=== PATIENT | female | born 1960 | race Caucasian/White ===

== ENCOUNTER → 2017-01-26 | Outpatient (CLI) | payer OTHER | LOC: WI 08:11 | PROVIDERS: ATTEND Nurse Practitioner Family | DX: Z12.31 Encounter for screening mammogram for malignant neoplasm of breast (principal); Z53.8 Procedure and treatment not carried out for other reasons ==

== ENCOUNTER 2017-04-27 05:31 | Day surgery (SDC) | payer OTHER ==
[2017-04-20 09:37] LABS: HEMATOCRIT 41.1 % (36.0-47.0); HEMOGLOBIN 14.6 g/dL (12.0-15.5); HGB HCT DIFFERENCE 2.7; MEAN CORPUSCULAR HEMOGLOBIN 31.7 pg (27.0-33.4); MEAN CORPUSCULAR HGB CONC 35.4 g/dL (32.0-36.0); MEAN CORPUSCULAR VOLUME 89 fl (80-97); RED BLOOD COUNT 4.59 10^6/uL (3.72-5.28); RED CELL DISTRIBUTION WIDTH 13.1 % (11.5-14.0); WHITE BLOOD COUNT 9.1 10^3/uL (4.0-10.5)
[~2017-04-27 05:31] MED LIST: CEFAZOLIN 1 GM/D5W RTU 1 GM/50 ML RTUPB IV PRN; DEXTROSE 5%-LACTATED RINGERS 1,000 ML IV PRN; LACTATED RINGERS 1000 ML IV PRN
[2017-04-27] MEDS ORDERED: KETAMINE HCL INJ 500 MG/10 ML VIAL ONE (06:13)
[2017-04-27] MEDS ORDERED: MIDAZOLAM 2 MG/2 ML INJ ONE (06:14)
[2017-04-27] MEDS ORDERED: FENTANYL CITRATE INJ/PF 100 MCG/2 ML AMPUL ONE (06:14)
[2017-04-27] MEDS ORDERED: PROPOFOL INJ 200 MG/20 ML VIAL IV ONE (06:15)
[2017-04-27] MEDS ORDERED: LIDOCAINE 1%/EPINEPHRINE INJ 20 ML VIAL ONE (06:53)
[2017-04-27] MEDS ORDERED: MICROFIBRILLAR COLLAGEN 1 GM PACK ONE (06:53)
[2017-04-27] MEDS ORDERED: FENTANYL CITRATE INJ/PF 100 MCG/2 ML AMPUL IV PRN ×3 (07:51)
[2017-04-27] MEDS ORDERED: OXYCODONE-ACETAMINOPHEN 5-325 MG TABLET PO PRN ×2 (07:51)
[2017-04-27] MEDS ORDERED: DIPHENHYDRAMINE HCL 50 MG/ML VIAL IV PRN (07:51)
[2017-04-27] MEDS ORDERED: PROMETHAZINE HCL INJ 25 MG/1 ML VIAL IV PRN (07:51)
[2017-04-27] MEDS ORDERED: KETOROLAC TROMETHAMINE 10 MG TABLET PO PRN (08:17)
[2017-04-27] MEDS ORDERED: MORPHINE SULFATE 10 MG/ML INJ IV PRN (08:17)
[2017-04-27] MEDS ORDERED: ONDANSETRON HCL INJ/PF 4 MG/2 ML SDV IV PRN (08:17)
--- NOTE | 2017-04-27 08:17 | Operative Report ---
Operative Report DATE OF SURGERY: 04/27/17 PREOPERATIVE DIAGNOSIS: Left breast mass suspicious for papilloma POSTOPERATIVE DIAGNOSIS: Same OPERATION: 1. Focused ultrasound of the left breast. 2. Open excisional removal of the left breast mass 3 o'clock position, retroareolar SURGEON: DAYANA HANNAH 1ST RET[employer] ACCOUNT MANAGER: TWILA BARNARD ANESTHESIA: GA TISSUE REMOVED OR ALTERED: 1 left breast mass COMPLICATIONS: None ESTIMATED BLOOD LOSS: Scant INTRAOPERATIVE FINDINGS: See below PROCEDURE: Patient was taken to the preop holding area to the main operating room after the left breast was marked where general anesthesia was induced via LMA. Left arm abducted, left breast axilla chest wall prepped and draped sterile fashion Surgical plan surgical timeout were conducted Focused ultrasound of the left breast, 3 o'clock position, retroareolar midway between the nipple and the area Georgie border revealed approximately 2-1/2 cm horizontally oriented lobulated mass consistent with the target tissue. The skin at the areolar border was anesthetized with 1% lidocaine plain lidocaine. Deeper tissue was also a needs at times. Approximately 3-1/2 cm curvilinear incision was made along the air areolar border from the 2:00 to the 4 o'clock position. The elbow was elevated, and the underlying breast mass identified. A 2-0 Vicryl suture was placed in a aozoif-er-helrv fashion to use as a lever to provide traction on the specimen. The specimen was dissected out from surrounding fatty tissue superficially, and fibrocystic tissue deeply. There were some attachments to the intermediate mammary ducts and these were cauterized. The tissue appeared slightly fibrotic but not malignant. The mass was excised in its entirety with some posterior veins consistent with fibrocystic tissue. The specimen was sent to pathology for permanent analysis. It was not oriented. Wound check for hemostasis and small bleeders were cauterized as encountered. We palpated the recesses of the cavity and shaded fibrocystic tissue only. Avitene was placed in the recesses of the cavity and the wound closed with 3-0 Vicryl 4-0 Monocryl, benzoin Steri-Strips compression dressing applied. Patient tolerated the procedure well, extubated, taken to recovery in stable condition. The physician technical assistant, Ms. Weeks, provided assistance during this case by: Assisting with retracting tissue, instillation of local anesthesia and closure of skin incisions.
--- NOTE | 2017-04-27 08:21 | PDOC DISCHARGE SUMMARY ---
Discharge Summary (SDC) - Discharge Final Diagnosis: Left breast mass consistent with papilloma Date of Surgery: 04/27/17 Discharge Date: 04/27/17 Condition: Good Treatment or Instructions: Patient to wear compressive dressing and use compressive bra for 48 hours. May remove external dressing in 48 hours. Leave Steri-Strips on. Shower acting the breast. Return to also surgical clinic to see Dr. Jules in 1-2 weeks. May take Tylenol, Motrin and/or Toradol. Prescriptions: Ketorolac Tromethamine [Toradol 10 mg Tablet] 10 mg PO Q6HP PRN #14 tablet PRN Reason: Referrals: DAMASO HOLLOWAY, CONTINUOUS IMPROVEMENT ENGINEER-C [Primary Care Provider] - Discharge Diet: As Tolerated Discharge Activity: Activity As Tolerated, No Lifting Over 10 Pounds Home Care Assistance: None Needed Report the Following to Your Physician Immediately: Shortness of Breath, Increase in Pain - Encouraged patient to wear sports bra for moderate compression, Fever over 101 Degrees
[2017-04-27 10:22] VITALS: BP 125/68
[2017-04-27] MEDS ORDERED: METOCLOPRAMIDE HCL INJ/PF 10 MG/2 ML SDV ONE (11:48)
[2017-04-27] MEDS ORDERED: DEXAMETHASONE SOD PHOSPHATE INJ 4 MG/1 ML VIAL ONE (11:48)
[2017-04-27] MEDS ORDERED: LIDOCAINE 2% INJ-PF (20 MG/ML) 10 ML AMPUL ONE (11:48)
[2017-04-27] MEDS ORDERED: ONDANSETRON HCL INJ/PF 4 MG/2 ML SDV ONE (11:48)
== END 2017-04-27 10:15 | disposition home or self-care (01) ==
LOC: OROUT 05:31
PROVIDERS: ATTEND Surgery
PROC: 0HBU0ZX Excision of Left Breast, Open Approach, Diagnostic (ICD-10-PCS; principal; 2017-04-27 07:30)
DX: D24.2 Benign neoplasm of left breast (principal); N62 Hypertrophy of breast; N60.22 Fibroadenosis of left breast; F17.210 Nicotine dependence, cigarettes, uncomplicated; R41.3 Other amnesia; Z79.899 Other long term (current) drug therapy
CPT/HCPCS: 36415; 85027; 88342 ×2; 88341 ×2; 88307 ×2; 19101; J2250; J0690; J1100; J3010; J3490 ×3; J2765; J2405; J2704; 400; 88305